=== PATIENT | female | born 1980 ===

== ENCOUNTER 2018-05-11 09:45 | Emergency (ER) | payer BC, OTHER ==
[2018-05-11 09:46] VITALS: BMI 36.3
[2018-05-11 10:14] VITALS: RESP 18
--- NOTE | 2018-05-11 10:16 | ED PDOC ---
Arrival/HPI - General Chief Complaint: Lower Extremity Problem/Injury Time Seen by Provider: 05/11/18 10:06 Historian: Patient EM Caveat: Acuity of Condition - History of Present Illness Narrative History of Present Illness (Text): 05/11/18 10:46 Pt is a 37 yr old female who presents to the emergency department with injury to the right great toe after stumbling down the stairs at home this morning. Pt says she missed the last step and bent the toe forcefully and heard a pop sound followed by pain and some mild swelling. Says she iced it and took ibuprofen immediately along with elevation. Denies LOC or injury to her head or other joints, numbness or loss of motor function in the right LE. Time/Duration: Prior to Arrival Symptom Onset: Sudden Symptom Course: Unchanged Quality: Aching, Pressure Severity Level: 2 Activities at Onset: Rest Context: Walking, Home Past Medical History - Provider Review Nursing Documentation Reviewed: Yes - Travel History Have you recently traveled outside [place] w/in the past 3 mons?: No - Infectious Disease Hx of Infectious Diseases: None - Cardiac Hx Cardiac Disorders: No - Pulmonary Hx Asthma: Yes (never hospitalized) - Neurological Hx Neurological Disorder: No - HEENT Hx HEENT Disorder: No - Renal Hx Renal Disorder: No - Endocrine/Metabolic Hx Endocrine Disorders: No Hx Systemic Lupus Erythematosus: Yes Other/Comment: Lupus, Lyme Dis. - Hematological/Oncological Hx Blood Disorders: No - Integumentary Hx Dermatological Disorder: Yes Other/Comment: abscess chest wall - Musculoskeletal/Rheumatological Hx Musculoskeletal Disorders: No Hx Falls: No - Gastrointestinal Hx Gastrointestinal Disorders: No Other/Comment: gastric sleeve - Genitourinary/Gynecological Hx Genitourinary Disorders: No - Psychiatric Hx Psychophysiologic Disorder: No Hx Substance Use: No - Surgical History Hx Section: Yes Other/Comment: 2005 LAP BAND/2009REVISION LAP BAND/2013 LAP BAND REMOVAL sleeve installed.Oral surgery - Anesthesia Hx Anesthesia: Yes Hx Anesthesia Reactions: No Hx Malignant Hyperthermia: No Family/Social History - Physician Review Nursing Documentation Reviewed: Yes Family/Social History: Unknown Family HX Smoking Status: Never Smoked Hx Alcohol Use: No Hx Substance Use: No Allergies/Home Meds Allergies/Adverse Reactions: Allergies Sulfa (Sulfonamide Antibiotics) Allergy (Intermediate, Verified 03/28/16 09:52) RASH Home Medications: Home Meds Medication Instructions Recorded Confirmed No Known Home Med 05/11/18 05/11/18 Review of Systems - Review of Systems Constitutional: Normal Eyes: Normal ENT: Normal Respiratory: Normal Cardiovascular: Normal Gastrointestinal: Normal Genitourinary Female: Normal Musculoskeletal: Normal, Joint Swelling (right great toe and forefoot) Skin: Normal Neurological: Normal Endocrine: Normal Hemo/Lymphatic: Normal Psychiatric: Normal Physical Exam Vital Signs Reviewed: Yes Vital Signs Temp Pulse Resp BP Pulse Ox 05/11/18 11:16 98.2 F 72 18 128/75 98 05/11/18 09:46 98.4 F 87 18 125/90 100 Temperature: Afebrile Blood Pressure: Normal Pulse: Regular Respiratory Rate: Normal Appearance: Positive for: Well-Appearing, Non-Toxic, Comfortable Pain Distress: Mild Mental Status: Positive for: Alert and Oriented X 3 - Systems Exam Head: Present: Atraumatic, Normocephalic Respiratory/Chest: Present: Clear to Auscultation, Good Air Exchange. No: Respiratory Distress, Accessory Muscle Use Cardiovascular: Present: Regular Rate and Rhythm, Normal S1, S2. No: Murmurs Abdomen: No: Tenderness, Distention, Peritoneal Signs Back: Present: Normal Inspection Upper Extremity: Present: Normal Inspection. No: Cyanosis, Edema Lower Extremity: Present: Normal Inspection, NORMAL PULSES, Normal ROM (right great toe limited in flexion and extension), Tenderness (right great toe), Neurovascularly Intact (altered sensation of the dorsal surface inferior to great toe), Capillary Refill < 2 s. No: Edema, CALF TENDERNESS, Cyanosis, Perry 's Sign, Swelling, Erythema, Deformity, Temperature Abnormalties Neurological: Present: GCS=15, CN II-XII Intact, Speech Normal, Motor Func Grossly Intact, Normal Sensory Function, Normal Cerebellar Funct, Gait Normal Skin: Present: Warm, Dry, Normal Color. No: Rashes Psychiatric: Present: Alert, Oriented x 3, Normal Insight, Normal Concentration Medical Decision Making ED Course and Treatment: 05/11/18 10:49 Impression Pt is a 37 yr old female who presents to the emergency department with injury to the right great toe after stumbling down the stairs at home this morning. decreased sensation inferior to the right great toe; mild motor intact in flexion and extension, no erythema or edema noted. Plan XR of right foot assess and dispo Progress Note Right Great Toe XR IMPRESSION: Normal right great toe radiographs. Advised pt to use R.I.C.E. 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 TECHNIQUE:: AP radiograph of the right foot, with oblique and lateral view of the right great toe. COMPARISON: None. FINDINGS: BONES: Normal. No fracture. JOINTS: Normal. SOFT TISSUES: Normal. OTHER FINDINGS: None. IMPRESSION: Normal right great toe radiographs. Radiology Orders: 05/11/18 10:30 FOOT RIGHT GREAT TOE ROUTINE [RAD] Stat Disposition/Present on Arrival - Present on Arrival Any Indicators Present on Arrival: Yes History of DVT/PE: No History of Uncontrolled Diabetes: No Urinary Catheter: No History of Decub. Ulcer: No History Surgical Site Infection Following: None - Disposition Have Diagnosis and Disposition been Completed?: Yes Diagnosis: Sprain of great toe of right foot Disposition: HOME/ ROUTINE Disposition Time: 10:59 Patient Plan: Discharge Condition: GOOD Discharge Instructions (ExitCare): Toe Injury Additional Instructions: PAUL SILVA, thank you for letting us take care of you today. Your provider was Evie Doyle MD and MARIN Burk and you were treated for SPRAINED GREAT TOE. The emergency medical care you received today was directed at your acute symptoms. If you were prescribed any medication, please fill it and take as directed. It may take several days for your symptoms to resolve. Return to the Emergency Department if your symptoms worsen, do not improve, or if you have any other problems. *Please see your Primary doctor for further care if required Use ice and ibuprofen (400-600mg every 6 hrs with food) over the next few days to reduce pain and inflammation Please contact your doctor or call one of the physicians/clinics you have been referred to that are listed on the Patient Visit Information form that is included in your discharge packet. Bring any paperwork you were given at discharge with you along with any medications you are taking to your follow up visit. Our treatment cannot replace ongoing medical care by a primary care provider outside of the emergency department. Thank you for allowing the [facility] team to be part of your care today. If you had an X-Ray or CT scan: A Radiologist will review the ED reading if any change in treatment is needed we will contact you. Forms: [employer] (Moroccan), WORK NOTE
--- NOTE | 2018-05-11 11:05 | RAD ---
PROCEDURE: Radiographs of the right great toe. TECHNIQUE:: AP radiograph of the right foot, with oblique and lateral view of the right great toe. COMPARISON: None. FINDINGS: BONES: Normal. No fracture. JOINTS: Normal. SOFT TISSUES: Normal. OTHER FINDINGS: None. IMPRESSION: Normal right great toe radiographs.
[2018-05-11 11:17] VITALS: BP 128/75; PULSE 72; TEMP 98.2; O2SAT 98
== END 2018-05-11 11:16 | disposition home or self-care (01) ==
LOC: ED 09:45
DX: S93.501A Unspecified sprain of right great toe, initial encounter (principal); W10.9XXA Fall (on) (from) unspecified stairs and steps, initial encounter; Y92.009 Unspecified place in unspecified non-institutional (private) residence as the place of occurrence of the external cause